=== PATIENT | male | born 1975 | race Native Hawaiian/Other Pacific Islander ===

== ENCOUNTER 2022-12-18 21:12 | Emergency (ER) | payer OTHER ==
[~2022-12-18] VITALS: Ht 190.5 cm; Wt 113.4 kg
[2022-12-18 21:27] VITALS: TEMP 97.8
[2022-12-18 22:13] VITALS: BP 161/98
== END 2022-12-18 22:13 | disposition home or self-care (01) ==
LOC: ED 21:12
DX: E29.1 Testicular hypofunction (principal); W45.8XXA Other foreign body or object entering through skin, initial encounter; Y92.89 Other specified places as the place of occurrence of the external cause
CPT/HCPCS: 99281